=== PATIENT | male | born 1990 | race Caucasian/White ===

== ENCOUNTER 2017-12-12 00:35 | Emergency (ER) | payer OTHER ==
[2017-12-12 01:46] LABS: CALCIUM 8.8 mg/dL (8.5-10.1); CARBON DIOXIDE 28.5 mmol/L (21-32); CHLORIDE SERUM 107 mmol/L (98-107); CREATININE SERUM 0.9 mg/dL (0.7-1.3); GFR1 > 60 mL/min; GLUCOSE SERUM 99 mg/dL (74-106); POTASSIUM SERUM 4.1 mmol/L (3.5-5.1); SODIUM SERUM 147 mmol/L (136-145)
[2017-12-12 01:49] LABS: BASOPHIL % 0.4 % (0-2); PLATELET COUNT 350 x10^3mcL (130-400); RED CELL DISTRIBUTION WIDTH 11.8 % (11.5-14.5)
[2017-12-12 01:51] LABS: ALBUMIN 3.9 g/dL (3.4-5.0); ALKALINE PHOSPHATASE 85 U/L (46-116); ALT/SGPT 29 U/L (16-63); AST/SGOT 16 U/L (15-37); BILIRUBIN TOTAL 0.34 mg/dL (0.20-1.00)
[2017-12-12 02:08] LABS: AMPHETAMINE QUAL UR NONE DETECTED (See below)
[2017-12-12 03:15] VITALS: BP 125/51
== END 2017-12-12 03:15 | disposition home or self-care (01) ==
LOC: ED 00:35
PROVIDERS: Emergency Medicine
DX: R07.89 Other chest pain (principal); M54.2 Cervicalgia
CPT/HCPCS: G0480; J1885; J3010; Q0092